=== PATIENT | female | born 1950 | race Caucasian/White ===

== ENCOUNTER 2019-01-23 19:04 | Inpatient (IN) | payer MEDICARE, MEDICAID ==
[~2019-01-23] VITALS: Ht 152.4 cm; Wt 69.0 kg
[2019-01-23 00:20] VITALS: BP 160/67
[2019-01-23 19:11] VITALS: BP 152/70
[2019-01-24] MEDS ORDERED: NITROSTAT0.4 MG SL (00:30)
[2019-01-24] MEDS ORDERED: LOPRESSOR25 MG PO (00:31)
[2019-01-24] MEDS ORDERED: ASPIRIN ADULT L81 M1 PO (00:32)
[2019-01-24] MEDS ORDERED: LIPITOR40 MG PO (00:32)
[2019-01-24] MEDS ORDERED: PROAIR HFA8.5 GM INH (00:32)
[2019-01-24 04:00] VITALS: BP 121/41
[2019-01-24 05:55] LABS: ALBUMIN 3.1 gm/dl (3.1-4.5); ALKALINE PHOSPHATASE 77 U/L (45-117); BUN 13 mg/dl (7-24); CHLORIDE 113 mmol/L (98-107); CHOLESTEROL 149 mg/dL (<200); CREATININE 0.61 mg/dL (0.55-1.02); FREE T4 1.05 ng/dl (0.76-1.46); HDL CHOLESTEROL 51 mg/dl (40-60); LDL CHOLESTEROL 87 mg/dL (9-159); PHOSPHOROUS 2.9 mg/dL (2.5-4.9); SGOT/AST 9 IU/L (3-35); SGPT/ALT 18 U/L (12-78); SODIUM 143 mmol/L (136-145); TOTAL PROTEIN 6.5 gm/dL (6.4-8.2); TRIGLYCERIDES 56 mg/dl (<150); VLDL CHOLESTEROL 11 mg/dL (6-40)
[2019-01-24 06:00] LABS: THYROID STIM HORMONE (HS) 0.883 uIU/ml (0.358-4.75)
[2019-01-24 06:08] LABS: HEMATOCRIT 42.2 % (37.0-47.0); HEMOGLOBIN 13.7 g/dl (12.0-16.0); LYMPH # 1.2 10*3/uL (1.3-4.4); MEAN CELL VOLUME 96.6 fl (81.0-99.0); MEAN CORPUSCULAR HGB 31.4 pg (27.0-31.0); MEAN CORPUSCULAR HGB CONC 32.5 g/dl (33.0-37.0); MEAN PLATELET VOLUME 10.2 fl (9.6-12.3); MONO # 0.1 10*3/uL (0.1-1.0); MONO % 1.5 % (3.0-9.0); NEUT # 4.8 10*3/uL (2.3-7.9); PLATELET COUNT AUTOMATED 190 10*3/uL (130-400); RED BLOOD COUNT 4.37 10*6/uL (4.10-5.10); RED CELL DISTRI WIDTH 13.7 % (0-14.5); WHITE BLOOD COUNT 6.1 10*3/uL (4.8-10.8)
[2019-01-24 07:20] LABS: VITAMIN D, 25-HYDROXY 24.2 ng/mL (30-100)
[2019-01-24 08:00] VITALS: BP 146/66
[2019-01-24 12:00] VITALS: BP 167/73
[2019-01-24] MEDS ORDERED: PREDNISONE10 MG PO (14:21)
== END 2019-01-24 15:10 | disposition home or self-care (01) | DRG 916 ==
LOC: ED 19:04 → ICCU 23:28 → EDHOLD 23:28 → ICCU 23:54
PROVIDERS: Internal Medicine; ADMIT Internal Medicine
DX: T78.3XXA Angioneurotic edema, initial encounter (principal); R00.0 Tachycardia, unspecified; E83.41 Hypermagnesemia; E87.8 Other disorders of electrolyte and fluid balance, not elsewhere classified; F41.9 Anxiety disorder, unspecified; I25.10 Atherosclerotic heart disease of native coronary artery without angina pectoris; J44.9 Chronic obstructive pulmonary disease, unspecified; E78.5 Hyperlipidemia, unspecified; F17.210 Nicotine dependence, cigarettes, uncomplicated; I10 Essential (primary) hypertension; E04.1 Nontoxic single thyroid nodule; R73.9 Hyperglycemia, unspecified; I25.2 Old myocardial infarction; Z85.828 Personal history of other malignant neoplasm of skin; Z95.5 Presence of coronary angioplasty implant and graft; Z82.49 Family history of ischemic heart disease and other diseases of the circulatory system; Z79.899 Other long term (current) drug therapy; Z79.82 Long term (current) use of aspirin; Z71.6 Tobacco abuse counseling